=== PATIENT | female | born 1990 | race African-American/Black ===

== ENCOUNTER → 2016-11-07 | Outpatient (CLI) | payer OTHER ==
[~2016-11-07] MED LIST: AZIT500T2 PO; CEPH-460 PO; FERR325T PO; PREN29TA PO; ZOFR4TAB PO
== END ==
LOC: HPND 07:52
PROVIDERS: ATTEND Family Medicine
DX: O26.841 Uterine size-date discrepancy, first trimester (principal)
CPT/HCPCS: 76805

== ENCOUNTER → 2016-12-05 | Outpatient (CLI) | payer OTHER | LOC: HPND 07:59 | PROVIDERS: ATTEND Family Medicine | DX: O99.210 Obesity complicating pregnancy, unspecified trimester (principal); E66.09 Other obesity due to excess calories; Z68.42 Body mass index [BMI] 45.0-49.9, adult | CPT/HCPCS: 76816; 76817 ==

== ENCOUNTER → 2017-01-16 | Outpatient (CLI) | payer OTHER ==
[~2017-01-16] MED LIST changes: -AZIT500T2 PO
== END ==
LOC: HPND 07:58
PROVIDERS: ATTEND Family Medicine
DX: O99.212 Obesity complicating pregnancy, second trimester (principal); Z3A.25 25 weeks gestation of pregnancy
CPT/HCPCS: 76816

== ENCOUNTER → 2017-02-27 | Outpatient (CLI) | payer OTHER | LOC: HPND 09:21 | PROVIDERS: ATTEND Family Medicine | DX: O99.213 Obesity complicating pregnancy, third trimester (principal); Z3A.31 31 weeks gestation of pregnancy | CPT/HCPCS: 76816 ==

== ENCOUNTER 2017-03-14 15:14 | Emergency (ER) | payer OTHER ==
[2017-03-14] VITALS (9 sets, daily range): BP systolic 123–142; BP diastolic 66–87; PULSE 86–99; RESP 18
[~2017-03-14 15:14] MED LIST changes: -CEPH-460 PO; -ZOFR4TAB PO
[2017-03-14] MEDS ORDERED: ACETAMINOPHEN 325 MG TAB PO PRN (16:00)
[2017-03-14 16:42] LABS: HEMATOCRIT 35.2 % (35.0-46.0); MEAN CELL VOLUME 78.7 FL (80.0-100.0); MEAN CORPUSCULAR HEMOGLOBIN 24.6 PG (27.0-34.0); MEAN CORPUSCULAR HGB CONC 31.3 % (32.0-36.0); PLATELET COUNT 258 TH/MM3 (150-450); RED BLOOD COUNT 4.48 MIL/MM3 (4.00-5.30); RED CELL DISTRIBUTION WIDTH 17.6 % (11.6-17.2); REVIEW FLAG FINAL; WHITE BLOOD COUNT 12.3 TH/MM3 (4.0-11.0)
[2017-03-14 16:51] LABS: AMPHETAMINE, URINE NEG (NEG); BARBITURATES, URINE NEG (NEG); COCAINE, URINE NEG (NEG)
[2017-03-14 16:53] LABS: BLOOD, URINE NEG (NEG); GLUCOSE,URINE NEG (NEG); KETONE, URINE NEG (NEG); MUCUS URINE FEW /lpf (OCC); NITRITE,URINE NEG (NEG); PH, URINE 6.5 (5.0-8.5); SQUAMOUS EPITHELIAL CELL URINE 3 /hpf (0-5); URINE COLOR YELLOW (YELLW/STRAW)
[2017-03-14 16:54] LABS: COMMENT (UR) CULT NOT INDICATED; CULTURE IF INDICATED CULT NOT INDICATED
[2017-03-14 17:04] LABS: ALT (GPT) 37 U/L (10-53); ANION GAP 8 MEQ/L (5-15); AST (GOT) 19 U/L (15-37); BLOOD UREA NITROGEN 9 MG/DL (7-18); CHLORIDE 106 MEQ/L (98-107); GLOMERULAR FILTRATION RATE 133 ML/MIN (>89); POTASSIUM 3.9 MEQ/L (3.5-5.1); SODIUM (NA) 139 MEQ/L (136-145)
[2017-03-14 17:09] LABS: ALKALINE PHOSPHATASE 109 U/L (45-117); TOTAL BILIRUBIN ADULT 0.3 MG/DL (0.2-1.0); URIC ACID 3.5 MG/DL (2.6-6.0)
--- NOTE | 2017-03-14 17:27 | HHI.DS ---
Admission Date Pt was seen with c/o headaches, and blurred vision today 03-14-2017. Pt is 26 yo at 33 weeks Pt has had BPs wnl after initial elevation. Systolics 120-130s, and diastolics 70-80s. Headache resolved after Tylenol. No pedal edema, normal patella DTRs. PIH labs wnl, urine trace protein CGC/Ch PCR from urine pending Discharge Date: Mar 14, 2017 Admitting Diagnosis Hypertension in . Diagnosis: Pt Condition on Discharge: Good Discharge Disposition: Discharge Home Discharge Instructions Diet Instructions: As Tolerated, No Restrictions Activities You Can Perform: Regular-No Restrictions Andre Dunaway MD Mar 14, 2017 17:27
--- NOTE | 2017-03-14 17:40 | PD ---
HPI Chief Complaint Headache, Blurry Vision, ABD pain Date Seen: Mar 14, 2017 Travel History International Travel<30 Days: No Contact w/Intl Traveler<30Days: No Known Affected Area: No History of Present Illness HPI Ms. Gupta is 26 y/o presenting at 33/3 weeks with headaches, ABD pain, and blurred vision. She was seen at the [facility] yesterday, 03/13/17, and found to have blood pressure of 142/87 and generalized fatigue. Overnight she started experiencing 8/10 ABD pain that was intermitting in her lower groin. She was able to sleep last night, but this morning endorsed 5/10 abdominal pain, blurred vision, and headaches. She endorses good movement, no loss of fluid, no discharge, and no bleeding. She otherwise has no complaints. 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 - Father of the fetus is healthy Alcohol Use: No Tobacco Use: No Substance Abuse: No Allergies-Medications (Allergen,Severity, Reaction): Coded Allergies: No Known Allergies (Unverified , 03/14/17) Home Meds Active Scripts Vit-Iron Carbonyl ( Plus Iron 29-1 mg)1 Tab Tab1 Tab PO DAILY #90 TAB Ref 3 Prov:Kasandra Thomas MD R2 03/13/17 Ferrous Sulfate 325 Mg [id number] Mg PO DAILY #60 TAB Ref 3 Prov:Sudheer Harris MD R1 12/01/16 Discontinued Scripts Cephalexin (Keflex)500 Mg [id number] Mg PO Q8H #21 CAP Ref 0 Prov:Sherron Vo MD 02/10/17 Vit-Iron Carbonyl ( Plus Iron 29-1 mg)1 Tab Tab1 Tab PO DAILY #60 TAB Ref 3 Prov:Sherron Vo MD 02/10/17 Ondansetron (Zofran)4 Mg Tab4 Mg PO Q6HR PRN (NAUSEA OR VOMITING) #6 TAB Ref 0 Prov:Sudheer Harris MD R1 01/26/17 Review of Systems General / Constitutional: No: Fever, Chills Eyes: Blurred Vision, No: Diploplia HENT: Headaches Cardiovascular: No: Chest Pain or Discomfort, Palpitations Respiratory: No: Cough, Short of Breath, Wheezing Gastrointestinal: Abdominal Pain, No: Nausea, Vomiting, Diarrhea Genitourinary: No: Dysuria, Discharge, Vaginal Bleeding Musculoskeletal: No: Weakness Skin: No Rash Neurologic: No: Weakness Psychiatric: No: Substance Abuse Endocrine: No: Polydipsia Hematologic/Lymphatic: No Lymph Node Enlargement Physical Exam Vital Signs Date Time Temp Pulse Resp B/P Pulse Ox O2 Delivery O2 Flow Rate FiO2 03/14/17 17:04 96 135/66 03/14/17 16:46 88 134/84 03/14/17 16:31 86 124/83 03/14/17 16:16 93 128/81 03/14/17 16:10 94 123/73 03/14/17 15:46 96 123/82 03/14/17 15:45 18 03/14/17 15:42 96 139/73 03/14/17 15:31 99 142/87 Narrative GENERAL: Well-nourished, well-developed patient. SKIN: Warm and dry. HEAD: Normocephalic and atraumatic. EYES: No scleral icterus. No injection or drainage. ENT: No nasal drainage noted. Mucous membranes pink. Airway patent. NECK: Supple, trachea midline. No JVD. CARDIOVASCULAR: Regular rate and rhythm without murmurs, gallops, or rubs. RESPIRATORY: Breath sounds equal bilaterally. No accessory muscle use. ABDOMEN/GI: Abdomen soft, non-tender, bowel sounds present, no rebound, no guarding Gravid to 33 weeks size FHT's: Category: 1 Baseline: 125 Reactive: + Variability: Moderate Decels: None EXTREMITIES: No cyanosis or edema. BACK: Nontender without obvious deformity. No CVA tenderness. NEUROLOGICAL: Awake and alert. Motor and sensory grossly within normal limits. Five out of 5 muscle strength in all muscle groups. Reflexes WNL. Normal speech. Data Data Vital Signs Reviewed: Yes Orders Cbc No Diff, Includes Plts (03/14/17 15:49) Comprehensive Metabolic Panel (03/14/17 15:49) Uric Acid (03/14/17 15:49) Urinalysis - C+S If Indicated (03/14/17 15:49) Vital Signs (Adult) .ON ADMISSION (03/14/17 15:49) ^ Labor Status (03/14/17 15:49) ^ Non Stress Test (03/14/17 15:49) ^ Hydration (03/14/17 15:49) Ob/Psych Drug Screen, Urine (03/14/17 15:49) Acetaminophen (Tylenol) (03/14/17 16:00) Gc And Chlamydia Pcr (03/14/17 16:17) Ur Bath Salts (03/14/17 15:25) Ur Heroin (03/14/17 15:25) Ur K2 Spice (03/14/17 15:25) Ur Ecstasy (03/14/17 15:25) Phencyclidine Urine (Pcp) (03/14/17 15:25) Labs Laboratory Tests Test 03/14/17 03/14/17 15:25 16:00 Urine Color YELLOW Urine Turbidity CLEAR Urine pH 6.5 Urine Specific [place] 1.021 Urine Protein TRACE Urine Glucose (UA) NEG Urine Ketones NEG Urine Occult Blood NEG Urine Nitrite NEG Urine Bilirubin NEG Urine Urobilinogen LESS THAN 2.0 Urine Leukocyte Esterase SMALL Urine RBC 1 Urine WBC 2 Urine Squamous Epithelial 3 Cells Urine Mucus FEW Microscopic Urinalysis Comment CULT NOT INDICATED Urine Opiates Screen NEG Urine Barbiturates Screen NEG Urine Amphetamines Screen NEG Urine Benzodiazepines Screen NEG Urine Cocaine Screen NEG Urine Cannabinoids Screen NEG White Blood Count 12.3 Red Blood Count 4.48 Hemoglobin 11.0 Hematocrit 35.2 Mean Corpuscular Volume 78.7 Mean Corpuscular Hemoglobin 24.6 Mean Corpuscular Hemoglobin 31.3 Concent Red Cell Distribution Width 17.6 Platelet Count 258 Mean Platelet Volume 8.2 Sodium Level 139 Potassium Level 3.9 Chloride Level 106 Carbon Dioxide Level 25.0 Anion Gap 8 Blood Urea Nitrogen 9 Creatinine 0.66 Estimat Glomerular Filtration 133 Rate Random Glucose 92 Uric Acid 3.5 Calcium Level 9.0 Total Bilirubin 0.3 Aspartate Amino Transf 19 (AST/SGOT) Alanine Aminotransferase 37 (ALT/SGPT) Alkaline Phosphatase 109 Total Protein 7.4 Albumin 2.6 [facility] Medical Record Reviewed: Yes Plan Ms. Gupta is 26 y/o presenting at 33/3 weeks with headaches, ABD pain, and blurred vision likely secondary to hypertension in . 1. IUP at 33 weeks Continue routine OB care Encourage oral hydration 2. Hypertension in Exam reassuring Initial blood pressure 142/87, thereafter systolics between 120 to 130s and diastolics between 70 to 80s. -induced hypertension labs ordered, within normal limits Urine with trace protein Headache resolved with Tylenol administration 3. History of chlamydial infection Previously treated per chart review Test of cure urine chlamydia and gonorrhea PCR: Pending Patient to be discharged home and advised to follow-up with PCP within one week. DW: Dr. Dunaway, Dr. Nam Diagnosis Diagnosis: Primary Impression: 33 weeks gestation of Additional Impression: Hypertension affecting Disposition: 01 DISCHARGE HOME Condition: Stable Patient Instructions: General Instructions, Preeclampsia (ED) Departure Forms: Tests/Procedures Fausto Winston MD R1 Mar 14, 2017 17:40
[2017-03-14 18:38] LABS: CHLAMYDIA PCR NOT DETECTED (NOT DETECT); NEISSERIA PCR NOT DETECTED (NOT DETECT)
[2017-03-18 17:23] LABS: OBMETHADONE UR NEG (NEG); PHENCYCLIDINE URINE NEG (NEG)
[2017-03-18 17:24] LABS: BATH SALTS (MDPV) UR NEG (NEG); ECSTASY (MDMA) UR NEG (NEG); GABAPENTIN UR NEG (NEG); HEROIN (6-ACETYLMORPHINE) UR NEG (NEG); HYDROMORPHONE U NEG (NEG); K2 SPICE UR NEG (NEG); OXYCODONE (PERCODAN) NEG (NEG)
[2017-03-19] MEDS ORDERED: NORC5TAB PO (12:22)
== END 2017-03-14 18:18 | disposition home or self-care (01) ==
LOC: HOBED 15:14
DX: O16.3 Unspecified maternal hypertension, third trimester (principal); Z3A.33 33 weeks gestation of pregnancy
CPT/HCPCS: 80053; 80307; 81001; 84550; 85027; 87491; 87591; 99283; G0481

== ENCOUNTER 2017-03-23 11:11 | Emergency (ER) | payer OTHER ==
[~2017-03-23] VITALS: Ht 170.2 cm; Wt 140.0 kg
[~2017-03-23 11:11] MED LIST changes: +NORC5TAB PO
[2017-03-23 11:18] VITALS: BP 127/82; PULSE 103; RESP 20; TEMP 98.3; O2SAT 98
[2017-03-23] MEDS ORDERED: FERR324T4 PO (11:22)
[2017-03-23] MEDS ORDERED: ACETAMINOPHEN 325 MG TAB PO ONE (11:30)
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
[2017-03-23 12:37] VITALS: RESP 20
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
[2017-03-23 13:41] VITALS: BP 145/89
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
== END 2017-03-23 15:22 | disposition home or self-care (01) ==
LOC: HOBED 11:11 → NEPC 13:52 → HOBED 14:12
DX: O9A.213 Injury, poisoning and certain other consequences of external causes complicating pregnancy, third trimester (principal); S00.83XA Contusion of other part of head, initial encounter; S13.4XXA Sprain of ligaments of cervical spine, initial encounter; Z3A.34 34 weeks gestation of pregnancy; V43.52XA Car driver injured in collision with other type car in traffic accident, initial encounter
CPT/HCPCS: 59025; 70450

== ENCOUNTER 2017-04-06 23:14 | Emergency (ER) | payer OTHER ==
[~2017-04-06] VITALS: Ht 170.2 cm; Wt 143.3 kg
[~2017-04-06 23:14] MED LIST changes: +FERR324T4 PO; -FERR325T PO; -NORC5TAB PO
[2017-04-07] MEDS ORDERED: ACETAMINOPHEN 325 MG TAB PO ONE (00:15)
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
[2017-04-07 00:27] VITALS: BP 135/67; PULSE 80
[2017-04-07 00:29] VITALS: RESP 20
[2017-04-21] MEDS ORDERED: MICO1CRE2 VAGINAL (12:37)
== END 2017-04-07 00:37 | disposition home or self-care (01) ==
LOC: HOBED 23:14
DX: O26.893 Other specified pregnancy related conditions, third trimester (principal); R10.9 Unspecified abdominal pain; Z3A.37 37 weeks gestation of pregnancy
CPT/HCPCS: 59025

== ENCOUNTER 2017-04-15 10:19 | Emergency (ER) | payer OTHER ==
[2017-04-15] VITALS (12 sets, daily range): BP systolic 111–151; BP diastolic 64–93; PULSE 69–80; RESP 18
--- NOTE | 2017-04-15 10:56 | PD ---
HPI Chief Complaint Headache Date Seen: Apr 15, 2017 Time Seen: 10:30 (Tate Morton MD R2) Travel History International Travel<30 Days: No Contact w/Intl Traveler<30Days: No Known Affected Area: No (Tate Morton MD R2) History of Present Illness HPI Patient is a 26-year-old at 38 weeks and 1 day who presents with headache. She reports that her headache started last night with some associated right foot numbness. She reports that the headache starts in the back of her head and goes to the front of her head. She describes as 10 out of 10 in severity. She reports that she woke up this morning with right eye blurriness, which is better now but not perfect. She also complains of some dizziness, like the room is spinning around her, worse with walking, with associated diaphoresis. She denies any contractions, leakage of fluid, vaginal bleeding. She reports movement. She reports some abdominal pressure but no pain. She also reports some feet swelling. Review of systems is otherwise negative. ( Tate Morton MD R2) History Past Medical History Medical History: Denies Significant Hx (Tate Morton MD R2) Obstetric History Obstetric History Patient reports that this is her first and has been uncomplicated except that recently she has had some elevated blood pressure with proteinuria as well as elevated blood glucose. She does not yet need medications for any of these problems. (Tate Morton MD R2) Past Surgical History Surgical History: No Previous Surgery (Tate Morton MD R2) Family History Narrative Family History Patient is accompanied by her sister who reports that she had preeclampsia in both of her pregnancies. (Tate Morton MD R2) Social History Narrative Social History Patient reports living alone. Alcohol Use: No Tobacco Use: No Substance Abuse: No (Tate Morton MD R2) Allergies-Medications (Allergen,Severity, Reaction): Coded Allergies: Keflex (Verified Adverse Reaction, Intermediate, Rash, 04/14/17) Home Meds Active Scripts Cyclobenzaprine (Flexeril)5 Mg Tab5 Mg PO TID #3 TAB Ref 0 Prov:Tate Morton MD R2 04/15/17 Vit-Iron Carbonyl ( Plus Iron 29-1 mg)1 Tab Tab1 Tab PO DAILY #90 TAB Ref 3 Prov:Kasandra Thomas MD R3 03/13/17 Reported Medications Ferrous Sulfate DR 324 Mg [id number] Mg PO DAILY Ref 0 03/23/17 Discontinued Scripts Cyclobenzaprine (Flexeril)5 Mg Tab5 Mg PO TID #21 TAB Ref 0 Prov:Tate Morton MD R2 04/15/17 Review of Systems General / Constitutional: No: Fever, Weight Gain, Chills, Other Eyes: Blurred Vision (right eye, improving, but not at baseline) HENT: Headaches, Vertigo Cardiovascular: No: Irregular Rhythm, Chest Pain or Discomfort, Palpitations, Tachycardia, Syncope, Varicosities, Edema, Cyanosis Respiratory: No: Cough, Short of Breath, Other Gastrointestinal: No: Nausea, Vomiting, Diarrhea, Abdominal Pain Genitourinary: No: Dysuria, Decreased Urinary Output, Oliguria Musculoskeletal: Edema (of feet), Pain (in head), No: Limited ROM, Weakness, Cramping Neurologic: Dizziness, Headache, No: Syncope (Tate Morton MD R2) Physical Exam Blood pressure 137/80, 131/79, heart rate 80-94, respiratory rate 20, temperature 97.8, pain 10 out of 10 Narrative GENERAL: Well-nourished, well-developed obese female patient. SKIN: Warm and dry. HEAD: Normocephalic and atraumatic. EYES: No scleral icterus. No injection or drainage. ENT: No nasal drainage noted. Mucous membranes pink. Airway patent. NECK: Supple, trachea midline. No JVD. CARDIOVASCULAR: Regular rate and rhythm without murmurs, gallops, or rubs. RESPIRATORY: Breath sounds equal bilaterally. No accessory muscle use. ABDOMEN/GI: Abdomen soft, non-tender, bowel sounds present, no rebound, no guarding Gravid to 38 weeks size GENITOURINARY: Uterine Contractions: none FHT's: Category: Cat I Baseline: 130 Reactive: reactive Variability: moderate Decels: none EXTREMITIES: No cyanosis or edema. BACK: Nontender without obvious deformity. No CVA tenderness. NEUROLOGICAL: Awake and alert. Motor and sensory grossly within normal limits. Five out of 5 muscle strength in all muscle groups. Normal speech. (Tate Morton MD R2) Data Data Vital Signs Reviewed: Yes (Tate Morton MD R2) MDM Plan Patient is a 26-year-old at 38 weeks and 1 day who presents with headache. Patient has recent history of elevated blood pressures. Blood pressures are elevated but not concerning. 1. headache Monitor vitals, tocometry, heart tones, all reassuring Encourage by mouth hydration Fioricet by mouth 1 2. Elevated blood pressure in , likely chronic hypertension CBC, CMP, uric acid, LDH Outpatient 24-hour urine protein Addendum: Patient blood pressure seems to have improved to normal with left lateral recumbent positioning and larger blood pressure cuff. Patient still complains of intractable headache. Demerol 25 mg IM 1 and Phenergan 25 mg IM 1 Plan to discharge home Another addendum: Pt still without relief of headache. Full neurological exam normal. However, patient does have tenderness to palpation of her posterior neck and exacerbation of her headache with turning her head against resistance. Explained that this is reassuring for musculoskeletal/tension headaches. Discharge with prescription for Flexeril x1d d/w Dr. Saavedra (Tate Morton MD R2) Diagnosis Diagnosis: Primary Impression: Headache Additional Impressions: Normal in third trimester Hypertension affecting Disposition: 01 DISCHARGE HOME Condition: Good Scripts Cyclobenzaprine (Flexeril)5 Mg Tab5 Mg PO TID #3 TAB Ref 0 Prov:Tate Morton MD R2 04/15/17 Attestation Serial BPs 114/71, 111/64. Will administer pain medication and po fluids. Will d/c home if labs are negative and HENNESSY improves. Outpatient 24hr urine. Close f/u d/w patient. All questions answered. (Ivette Saavedra MD) Tate Morton MD R2 Apr 15, 2017 10:56 Ivette Saavedra MD Apr 15, 2017 13:17
[2017-04-15] MEDS ORDERED: ACETAMIN 325 MG/BUTALBITAL 50 MG/CAFFEINE 40 MG TAB PO ONE (11:00)
[2017-04-15 12:33] LABS: HEMATOCRIT 36.3 % (35.0-46.0); MEAN CELL VOLUME 78.7 FL (80.0-100.0); MEAN CORPUSCULAR HGB CONC 31.8 % (32.0-36.0); PLATELET COUNT 226 TH/MM3 (150-450); RED BLOOD COUNT 4.61 MIL/MM3 (4.00-5.30); RED CELL DISTRIBUTION WIDTH 16.3 % (11.6-17.2); REVIEW FLAG FINAL
[2017-04-15] MEDS ORDERED: MEPERIDINE HCL 25 MG/ML VIAL IM ONE (13:00)
[2017-04-15] MEDS ORDERED: PROMETHAZINE INJ 25 MG/ML VIAL IM ONE (13:00)
[2017-04-15 13:06] LABS: ALKALINE PHOSPHATASE 142 U/L (45-117); TOTAL BILIRUBIN ADULT 0.3 MG/DL (0.2-1.0)
[2017-04-15 13:10] LABS: ALT (GPT) 21 U/L (10-53); ANION GAP 8 MEQ/L (5-15); AST (GOT) 17 U/L (15-37); BICARBONATE 22.9 MEQ/L (21.0-32.0); BLOOD UREA NITROGEN 5 MG/DL (7-18); CHLORIDE 107 MEQ/L (98-107); GLOMERULAR FILTRATION RATE 136 ML/MIN (>89); LDH SERUM 225 U/L (84-246); SODIUM (NA) 138 MEQ/L (136-145); URIC ACID 3.8 MG/DL (2.6-6.0)
[2017-04-15] MEDS ORDERED: CYCL5TAB PO ×2 (14:22→14:23)
[2017-04-21] MEDS ORDERED: MICO1CRE2 VAGINAL (12:37)
[2017-06-19] MEDS ORDERED: SENN1TAB PO (13:53)
[2017-06-19] MEDS ORDERED: MIRA3350 PO (13:53)
== END 2017-04-15 14:59 | disposition home or self-care (01) ==
LOC: HOBED 10:19
DX: O26.893 Other specified pregnancy related conditions, third trimester (principal); R51 Headache; O16.3 Unspecified maternal hypertension, third trimester; Z3A.38 38 weeks gestation of pregnancy
CPT/HCPCS: 36415; 59025; 80053; 83615; 84550; 85027; 96372; 99284; J2175; J2550

== ENCOUNTER 2017-04-21 21:29 | Emergency (ER) | payer OTHER ==
[~2017-04-21 21:29] MED LIST changes: +CYCL5TAB PO; +MICO1CRE2 VAGINAL
[2017-04-21 21:59] VITALS: BP 131/73; PULSE 87
--- NOTE | 2017-04-21 22:18 | PD ---
HPI Chief Complaint contractions Date Seen: Apr 21, 2017 Time Seen: 22:00 (Osvaldo De La Torre MD R1) Travel History International Travel<30 Days: No Contact w/Intl Traveler<30Days: No Known Affected Area: No (Osvaldo De La Torre MD R1) History of Present Illness HPI Ms. Huang is a 26 yo F presenting with contractions. Pt states that for the past 4 days she has noticed contractions which worsened today. Describes increasing intensity and around 6 PM she had contractions every 5 - 10 minutes. Describes cramp like pain around naval, then lower abdomen then lower back. Denies vaginal bleeding or gush of fluid. States decreased movement, reporting one movement in the last hour. Denies fever/chills or dysuria Para: 0 : 1 (Osvaldo De La Torre MD R1) History Past Medical History Narrative Medical History Past Medical History Medical History: Denies Significant Hx Obstetric History Obstetric History Patient reports that this is her first and has been uncomplicated except that recently she has had some elevated blood pressure with proteinuria as well as elevated blood glucose. She does not yet need medications for any of these problems. (Tate Morton MD R2) Past Surgical History Surgical History: No Previous Surgery Family History Narrative Family History Patient is accompanied by her sister who reports that she had preeclampsia in both of her pregnancies. Social History Narrative Social History Patient reports living alone. Alcohol Use: No Tobacco Use: No Substance Abuse: No (Osvaldo De La Torre MD R1) Allergies-Medications (Allergen,Severity, Reaction): Coded Allergies: cephalexin (Unverified Adverse Reaction, Intermediate, Rash, 04/21/17) Home Meds Active Scripts Miconazole 3 Vaginal Cream (Monistat 3 Vaginal Cream)4 % Cream1 Appl VAGINAL HS #1 BOX Ref 0 Prov:Sudheer Harris MD R2 04/21/17 Vit-Iron Carbonyl ( Plus Iron 29-1 mg)1 Tab Tab1 Tab PO DAILY #90 TAB Ref 3 Prov:Kasandra Thomas MD, R3 03/13/17 Reported Medications Ferrous Sulfate DR 324 Mg [id number] Mg PO DAILY Ref 0 03/23/17 Discontinued Scripts Cyclobenzaprine (Flexeril)5 Mg Tab5 Mg PO TID #3 TAB Ref 0 Prov:Tate Morton MD R2 04/15/17 Review of Systems General / Constitutional: No: Fever, Chills Cardiovascular: No: Edema Genitourinary: No: Dysuria, Vaginal Bleeding (Osvaldo De La Torre MD R1) Physical Exam Narrative GENERAL: Well-nourished, well-developed patient. SKIN: Warm and dry. HEAD: Normocephalic and atraumatic. EYES: No scleral icterus. No injection or drainage. NECK: Supple, trachea midline. No JVD. CARDIOVASCULAR: Regular rate and rhythm without murmurs, gallops, or rubs. RESPIRATORY: Breath sounds equal bilaterally. No accessory muscle use. ABDOMEN/GI: Abdomen soft, no rebound, no guarding. mild tenderness in the epigastric region and LLQ Gravid to 39 weeks size GENITOURINARY: Dilatation: closed Effacement: full Station: -3 FHT's: Category: 1 Baseline: 140's Reactive: reassuring Variability: variable Decels: none EXTREMITIES: No cyanosis. +1 edema BACK: Nontender without obvious deformity. No CVA tenderness. NEUROLOGICAL: Awake and alert. Motor and sensory grossly within normal limits. Five out of 5 muscle strength in all muscle groups. Normal speech. (Osvaldo De La Torre MD R1) MDM Plan 26 yo at 39/0 presenting with contractions. Category 1 tracing, cervix 0 cm dilated and very posterior. No contractions on tracing OK to discharge home. Patient counseled to come back if she has gush of fluid, vaginal bleeding, increase in severity and shortening between contractions. (Osvaldo De La Torre MD R1) Diagnosis Diagnosis: Primary Impression: False labor Additional Impression: 39 weeks gestation of Disposition: 01 DISCHARGE HOME Condition: Good Collaborating MD Comments Agree with management and discharge. (Sumaya Monteiro MD) Osvaldo De La Torre MD R1 Apr 21, 2017 22:18 Sumaya Monteiro MD Apr 23, 2017 11:57
[2017-06-19] MEDS ORDERED: MIRA3350 PO (13:53)
[2017-06-19] MEDS ORDERED: SENN1TAB PO (13:53)
== END 2017-04-22 00:05 | disposition home or self-care (01) ==
LOC: HOBED 21:29
DX: O47.1 False labor at or after 37 completed weeks of gestation (principal); Z3A.39 39 weeks gestation of pregnancy
CPT/HCPCS: 59025

== ENCOUNTER 2017-04-26 21:35 | Emergency (ER) | payer OTHER ==
[~2017-04-26] VITALS: Ht 170.2 cm; Wt 144.2 kg
[~2017-04-26 21:35] MED LIST changes: -CYCL5TAB PO
[2017-04-26 21:49] VITALS: BP 135/79; PULSE 79
[2017-04-26 21:54] VITALS: RESP 18
--- NOTE | 2017-04-26 22:07 | PD ---
HPI Travel History International Travel<30 Days: No Contact w/Intl Traveler<30Days: No Known Affected Area: No History of Present Illness HPI This patient is a 26-year-old 1 para 0 EDC is April 28, 2017 presently 39 weeks and 5 days scheduled for an induction on April 28 she presents with the chief complaint of contractions. States they began about 4 hours ago occurring every 2-5 minutes no rupture of membranes no vaginal bleeding states that she has tightening of her abdomen that radiates to the low back baby is active care with family practice course is significant for an abnormal one- hour Glucola but she never had three-hour Protein in her urine She presents for labor check History Past Medical History Narrative Medical Allergy to Keflex she has swelling and a rash Denies any major medical problems Obesity Obstetric History Obstetric History First Past Surgical History Narrative Surgical No previous surgery Family History Narrative Family History Hypertension Social History Alcohol Use: No Tobacco Use: No Substance Abuse: No Allergies-Medications (Allergen,Severity, Reaction): Coded Allergies: cephalexin (Unverified Adverse Reaction, Intermediate, Rash, 04/21/17) Home Meds Active Scripts Miconazole 3 Vaginal Cream (Monistat 3 Vaginal Cream) 4 % Cream, 1 APPL VAGINAL HS for Infection, #1 BOX 0 Refills Prov:Sudheer Harris MD R2 04/21/17 Vit-Iron Carbonyl ( Plus Iron 29-1 mg) 1 Tab Tab, 1 TAB PO DAILY for Nutritional Supplement, #90 TAB 3 Refills Prov:Kasandra Thomas MD, R3 03/13/17 Reported Medications Ferrous Sulfate DR (Ferrous Sulfate DR) 324 Mg Tabdr, 324 MG PO DAILY for Nutritional Supplement, TAB 0 Refills 03/23/17 Discontinued Scripts Cyclobenzaprine (Flexeril) 5 Mg Tab, 5 MG PO TID for Muscle Spasm, #3 TAB 0 Refills Prov:Tate Morton MD R2 04/15/17 Review of Systems General / Constitutional: No: Fever, Weight Gain, Weight Loss, Chills, Other Eyes: No: Diploplia, Blurred Vision, Visual changes, Pain, Photophobia, Other HENT: No: Headaches, Vertigo, Dental Difficulties, Lightheadedness, Other Cardiovascular: No: Irregular Rhythm, Chest Pain or Discomfort, Palpitations, Tachycardia, Syncope, Varicosities, Edema, Cyanosis, Other Respiratory: No: Cough, Short of Breath, Wheezing, Other Gastrointestinal: Abdominal Pain (uterine contractions as per history of present illness) Genitourinary: No: Urgency, Frequency, Dysuria, Nocturia, Hematuria, Decreased Urinary Output, Oliguria, Hesitancy, Dribbling, Incontinence, Pelvic Pain, Dyspareunia, Discharge, Menorrhagia, Vaginal Bleeding, Other Musculoskeletal: Pain (low back pain), No: Limited ROM, Weakness, Cramping, Edema, Other Neurologic: No: Weakness, Dizziness, Syncope, Focal Abnormalities, Coordination Problem, Headache, Slurred Speech, Seizures, Other Physical Exam Narrative GENERAL: Well-nourished, well-developed patient. Alert oriented 3 and cooperative in no acute distress SKIN: Warm and dry. HEAD: Normocephalic and atraumatic. EYES: No scleral icterus. No injection or drainage. ENT: No nasal drainage noted. Mucous membranes pink. Airway patent. NECK: Supple, trachea midline. No JVD. CARDIOVASCULAR: Regular rate and rhythm without murmurs, gallops, or rubs. RESPIRATORY: Breath sounds equal bilaterally. No accessory muscle use. ABDOMEN/GI: Gravid term only 1 contraction seen on the monitor Gravid to [-] weeks size term Fundal Height: [-] GENITOURINARY: External Genitalia: intact and normal in appearance BUS glands: [-] Cervix: [-] Posterior Dilatation: [-] Closed Effacement: [-] 0 Station: [-] Ballotable Presentation: [-] Vertex Membranes: [intact Uterine Contractions: [-] Irregular contractions only 1 seen FHT's: Category: [-] 1 Baseline: [-]140 Reactive: [-]+ Variability: [-] Moderate variability Decels: [-] 0 EXTREMITIES: No cyanosis or edema. 2+ reflexes NEUROLOGICAL: Awake and alert. Motor and sensory grossly within normal limits. Five out of 5 muscle strength in all muscle groups. Normal speech. Data Data Vital Signs Reviewed: Yes (blood pressures 135/79 pulse is 79 afebrile 98 6) MDM Medical Record Reviewed: No Interpretation(s) 26-year-old at 39 weeks and 5 days Not in labor [place] Vergara versus early latent phase Narrative Course / MDM contractions spaced cervix is not dilated category one tracing will discharge home patient to follow up in the clinic kick counts Plan External monitoring By mouth fluid hydration Observation Family practice in to see the patient Will send the patient home to follow-up in the clinic in the a.m. Diagnosis Diagnosis: Primary Impression: 39 weeks gestation of Additional Impression: Labor, false ([place]-Vergara) Disposition: 01 DISCHARGE HOME Condition: Stable Suha Padilla MD Apr 26, 2017 22:07
[2017-06-19] MEDS ORDERED: SENN1TAB PO (13:53)
[2017-06-19] MEDS ORDERED: MIRA3350 PO (13:53)
== END 2017-04-26 22:46 | disposition home or self-care (01) ==
LOC: HOBED 21:35
DX: O47.1 False labor at or after 37 completed weeks of gestation (principal); Z3A.39 39 weeks gestation of pregnancy
CPT/HCPCS: 59025

== ENCOUNTER 2017-04-29 14:35 | Inpatient (IN) | payer OTHER ==
[~2017-04-29] VITALS: Ht 170.2 cm; Wt 144.0 kg
[~2017-04-29 14:35] MED LIST changes: -MICO1CRE2 VAGINAL
[2017-04-29] MEDS ORDERED: OXYTOCIN 30 UNITS-500ML PREMIX 500 ML IV ONE (16:00)
[2017-04-29] MEDS ORDERED: LIDOCAINE HCL 1% 50 ML VIAL I-DERMAL PRN (16:00)
[2017-04-29] MEDS ORDERED: LIDOCAINE HCL 1% 50 ML VIAL INFIL PRN (16:00)
[2017-04-29] MEDS ORDERED: ONDANSETRON HCL 4 MG/2 ML VIAL IV PRN (16:00)
[2017-04-29] MEDS ORDERED: CITRIC ACID-SODIUM CITRATE LIQ 30 ML UDC PO SCH (16:00)
[2017-04-29] MEDS ORDERED: MINERAL OIL 10 ML VIAL TOPICAL PRN (16:00)
[2017-04-29] MEDS ORDERED: SODIUM CHLORID 0.9% 500 ML INJ 500 ML IV PRN (16:00)
[2017-04-29] MEDS ORDERED: LACTATED RINGER'S 1000 ML INJ 1,000 ML IV PRN (16:00)
[2017-04-29] MEDS: LACTATED RINGER'S 1000 ML INJ 1,000 ML IV SCH ×2 (16:00→23:43)
[2017-04-29 16:30] LABS: AUTOMATED NEUTROPHIL # 9.8 TH/MM3 (1.8-7.7); BASOPHIL % 0.2 % (0.0-2.0); EOSINOPHIL % 0.4 % (0.0-4.0); HEMATOCRIT 36.3 % (35.0-46.0); HEMO FLAGS DIFF FINAL; LYMPHOCYTE # 1.7 TH/MM3 (1.0-4.8); MEAN CELL VOLUME 79.1 FL (80.0-100.0); MEAN CORPUSCULAR HEMOGLOBIN 24.9 PG (27.0-34.0); MEAN CORPUSCULAR HGB CONC 31.4 % (32.0-36.0); MONO % 4.9 % (0.0-8.0); NEUT % 80.5 % (16.0-70.0); PLATELET COUNT 231 TH/MM3 (150-450); RED BLOOD COUNT 4.59 MIL/MM3 (4.00-5.30); RED CELL DISTRIBUTION WIDTH 16.6 % (11.6-17.2); WHITE BLOOD COUNT 12.1 TH/MM3 (4.0-11.0)
[2017-04-29 16:49] LABS: BACTERIA, URINE MOD /hpf; BLOOD, URINE NEG (NEG); COMMENT (UR) CULTURE INDICATED; CULTURE IF INDICATED CULTURE INDICATED; GLUCOSE,URINE NEG (NEG); KETONE, URINE NEG (NEG); NITRITE,URINE NEG (NEG); PH, URINE 6.5 (5.0-8.5); SQUAMOUS EPITHELIAL CELL URINE 12 /hpf (0-5); URINE COLOR YELLOW (YELLW/STRAW)
--- NOTE | 2017-04-29 17:08 | HHI.HP ---
History & Physical H&P HPI Chief Complaint Oligohydramnios Date Seen: Apr 29, 2017 Time Seen: 16:30 Travel History International Travel<30 Days: No Contact w/Intl Traveler<30Days: No Known Affected Area: No History of Present Illness HPI Miroslava Huang is a very pleasant 26 year old female at 40/1 weeks gestation based on an early 2nd trimester US sent to the OB ED from [facility] ultrasound after being found to have low fluid volume. Her has been complicated by an elevated 24-hour protein at 198 at the end of March and elevated protein/creatinine ratio at 121 as well as an elevated blood glucose with her 1-hour glucose tolerance test at 138. BPs have been within normal limits at her office visits. She reports she is feeling contractions at irregular intervals. Endorses good movement. No LOF or VB. She is GBS positive based on GBS bacteriuria earlier in . Weeks Gestation: 40 Para: 0 : 1 History Past Medical History Medical History: Denies Significant Hx Obstetric History Obstetric History Past Surgical History Surgical History: No Previous Surgery Family History Family History: Negative Social History Alcohol Use: No Tobacco Use: No Substance Abuse: No Allergies-Medications (Allergen,Severity, Reaction): Coded Allergies: cephalexin (Unverified Adverse Reaction, Intermediate, Rash, 04/29/17) Home Meds Active Scripts Vit-Iron Carbonyl ( Plus Iron 29-1 mg) 1 Tab Tab, 1 TAB PO DAILY for Nutritional Supplement, #90 TAB 3 Refills Prov:Kasandra Thomas MD, R3 03/13/17 Reported Medications Ferrous Sulfate DR (Ferrous Sulfate DR) 324 Mg Tabdr, 324 MG PO DAILY for Nutritional Supplement, TAB 0 Refills 03/23/17 Discontinued Scripts Miconazole 3 Vaginal Cream (Monistat 3 Vaginal Cream) 4 % Cream, 1 APPL VAGINAL HS for Infection, #1 BOX 0 Refills Prov:Sudheer Harris MD R2 04/21/17 Cyclobenzaprine (Flexeril) 5 Mg Tab, 5 MG PO TID for Muscle Spasm, #3 TAB 0 Refills Prov:Tate Morton MD R2 04/15/17 Review of Systems Except as stated in HPI: all other systems reviewed are Neg Physical Exam Narrative GENERAL: Well-nourished, well-developed patient. SKIN: Warm and dry. HEAD: Normocephalic and atraumatic. EYES: No scleral icterus. No injection or drainage. ENT: No nasal drainage noted. Mucous membranes pink. Airway patent. NECK: Supple, trachea midline. No JVD. CARDIOVASCULAR: Regular rate and rhythm without murmurs, gallops, or rubs. RESPIRATORY: Breath sounds equal bilaterally. No accessory muscle use. ABDOMEN/GI: Abdomen soft, non-tender, bowel sounds present, no rebound, no guarding Gravid to 40 weeks size GENITOURINARY: External Genitalia: [-] Cervix: posterior Dilatation: fingertip Effacement: 50% Station: -3 Presentation: vertex Membranes: intact Uterine Contractions: none on tocometer FHT's: Category: I Baseline: 130s Reactive: yes Variability: mod Decels: none EXTREMITIES: No cyanosis or edema. BACK: Nontender without obvious deformity. NEUROLOGICAL: Awake and alert. Motor and sensory grossly within normal limits. Normal speech. Data Data Vital Signs Reviewed: Yes Orders Orders Us Ob Limited (04/29/17 ) Ob (2e) Additional Admit Info (04/29/17 15:02) Admit To Inpatient (04/29/17 ) Code Status (04/29/17 15:54) Vital Signs (Adult) .Per protocol (04/29/17 15:54) Activity Oob Ad Ashley (04/29/17 15:54) Heart (04/29/17 15:54) Amnioinfusion (04/29/17 15:54) Urinary Catheter Management .ONCE (04/29/17 15:54) Lactated Ringer's 1000 Ml Inj (Lr 1000 M (04/29/17 15:54) Lactated Ringer's 1000 Ml Inj (Lr 1000 M (04/29/17 15:54) Sodium Chlorid 0.9% 500 Ml Inj (Ns 500 M (04/29/17 16:00) Sodium Chlor 0.9% 1000 Ml Inj (Ns 1000 M (04/29/17 16:14) Lidocaine 1% Inj (50 Ml) (Xylocaine 1% I (04/29/17 16:00) Citric Acid-Sodium Citrate Liq (Bicitra (04/29/17 16:00) Ondansetron Inj (Zofran Inj) (04/29/17 16:00) Fentanyl Inj (Fentanyl Inj) (04/29/17 16:00) Fentanyl Inj (Fentanyl Inj) (04/29/17 16:00) Complete Blood Count With Diff (04/29/17 15:54) Hold Clot (04/29/17 15:54) Abo/Rh Blood Type (04/29/17 15:54) Urinalysis - C+S If Indicated (04/29/17 15:54) Resp Oxygen Non Rebreathe Mask (04/29/17 ) ^ Epidural / Intrathecal Infus (04/29/17 15:54) Oxytocin 30 Units-500ml Premix (Pitocin (04/29/17 16:00) Lidocaine 1% Inj (50 Ml) (Xylocaine 1% I (04/29/17 16:00) Light Mineral Oil (Muri-Lube Oil) (04/29/17 16:00) Inpatient Certification (04/29/17 ) Specimen To Be Collected PRN (04/29/17 15:54) Diet Regular Basic (04/29/17 Lunch) Group B Strep: Positive Labs Laboratory Tests Test 04/29/17 15:25 White Blood Count 12.1 Red Blood Count 4.59 Hemoglobin 11.4 Hematocrit 36.3 Mean Corpuscular Volume 79.1 Mean Corpuscular Hemoglobin 24.9 Mean Corpuscular Hemoglobin Concent 31.4 Red Cell Distribution Width 16.6 Platelet Count 231 Mean Platelet Volume 9.2 Neutrophils (%) (Auto) 80.5 Lymphocytes (%) (Auto) 14.0 Monocytes (%) (Auto) 4.9 Eosinophils (%) (Auto) 0.4 Basophils (%) (Auto) 0.2 Neutrophils # (Auto) 9.8 Lymphocytes # (Auto) 1.7 Monocytes # (Auto) 0.6 Eosinophils # (Auto) 0.0 Basophils # (Auto) 0.0 CBC Comment DIFF FINAL Differential Comment MDM MDM Medical Record Reviewed: Yes Interpretation(s) Very pleasant 26 year old female at 40/1 weeks gestation based on an early 2nd trimester US being admitted to L&D for induction of labor after being found to have low fluid volume at [facility] ultrasound earlier today. 1. IUP - Cervix: fingertip/50%/-3, vertex presentation - Category I tracing - No contractions on tocometer - Start Cytotec 25 ug q4h for cervical ripening - Begin pitocin per protocol once cervix dilates - Initiate penicillin for GBS prophylaxis once labor begins - Patient desiring epidural when indicated - Anticipate amniotomy once cervix is more dilated - BP 145/88, continue to monitor Sudheer Harris MD R2 Apr 29, 2017 17:08
[2017-04-29] MEDS: MISOPROSTOL 25 MCG SUPP VAGINAL SCH ×2 (18:24→22:29)
[2017-04-29 19:37] VITALS: BP 152/91; PULSE 84
[2017-04-29 19:43] VITALS: BP 145/82; PULSE 78
[2017-04-29 19:44] VITALS: RESP 16; TEMP 98
[2017-04-29] MEDS ORDERED: hydrOXYzine PAMOATE 25 MG CAP PO PRN (21:00)
[2017-04-29] MEDS ORDERED: PENICILLIN G POTASSIUM INJ 5,000,000 UNITS in SODIUM CHLORIDE 0.9% INJ 100 ML IV ONE (21:30)
[2017-04-29 22:28] VITALS: BP 151/92; PULSE 76
[2017-04-29 22:30] VITALS: RESP 16; TEMP 97.7
--- NOTE | 2017-04-29 22:54 | PD.LABORPN ---
Subjective Subjective Miroslava is resting comfortably in bed. She has no specific complaints or questions at this time. Denies any significant pelvic pressure. Endorses +FM. She is eager to move forward with induction and deliver Mg. Objective Vital Signs Vital Signs Date Time Temp Pulse Resp B/P (MAP) Pulse Ox O2 Delivery O2 Flow Rate FiO2 04/29/17 22:30 97.7 16 04/29/17 22:28 76 151/92 (111) 04/29/17 19:44 98.0 16 04/29/17 19:43 78 145/82 (103) 04/29/17 19:37 84 152/91 (111) Objective Pelvic Exam: Cervix: posterior Dilatation: 1cm Effacement: 80% Station: -3 Presentation: vertex Membranes: intact Uterine Contractions: none on tocometer FHT's: Category: I Baseline: 140s Reactive: yes Variability: mod Decels: none Weeks Gestation: 40 Gest Age Assessed Date: Apr 29, 2017 Gest Age Assessed Time: 22:40 Pt started active labor?: No Medical induction of labor?: Yes Medical induction start date: Apr 29, 2017 Medical induction start time: 18:00 Artificial rupture of membrane: No Assessment/Plan Problem List: (1) 40 weeks gestation of ICD Codes: Z3A.40 - 40 weeks gestation of Assessment and Plan Very pleasant 26 year old female at 40/1 weeks gestation based on an early 2nd trimester US admitted to L&D for induction of labor after being found to have low fluid volume at [facility] ultrasound earlier today. 1. IUP - Cervix: 1cm/80%/-3, vertex presentation - Category I tracing - No contractions on tocometer - Continue Cytotec 25 ug q4h for cervical ripening - Begin pitocin per protocol once cervix dilates - Initiate penicillin for GBS prophylaxis once labor begins - Patient desiring epidural when indicated - Anticipate amniotomy once cervix is more dilated - BPs 140s-150s/80s-90s, continue to monitor Sudheer Harris MD R2 Apr 29, 2017 22:54
[2017-04-29 23:45] VITALS: BP 145/91; PULSE 68
[2017-04-30] VITALS (69 sets, daily range): BP systolic 99–158; BP diastolic 54–118; PULSE 67–102; RESP 16–18; TEMP 97.7–98.7
[2017-04-30] MEDS: MISOPROSTOL 25 MCG SUPP VAGINAL SCH ×4 (02:32→14:00)
--- NOTE | 2017-04-30 07:05 | PD.LABORPN ---
Subjective Subjective Miroslava reports pelvic pressure and feeling pain from contractions about every 5 minutes. She states she has not been able to get comfortable or sleep very long due to the discomfort. She states her pain was relieved a few hours ago when she last had IV fentanyl. Objective Vital Signs Vital Signs Date Time Temp Pulse Resp B/P (MAP) Pulse Ox O2 Delivery O2 Flow Rate FiO2 04/30/17 05:56 16 04/30/17 05:55 78 139/87 (104) 04/30/17 02:39 67 148/77 (100) 04/30/17 02:39 98.7 18 04/29/17 23:45 68 145/91 (109) Objective Pelvic Exam: Cervix: posterior Dilatation: 1-2cm Effacement: 80% Station: -3 Presentation: vertex Membranes: intact Uterine Contractions: irregular FHT's: Category: I Baseline: 130s Reactive: yes Variability: mod Decels: none Weeks Gestation: 40 Gest Age Assessed Date: Apr 29, 2017 Gest Age Assessed Time: 22:40 Pt started active labor?: No Medical induction of labor?: Yes Medical induction start date: Apr 29, 2017 Medical induction start time: 18:00 Artificial rupture of membrane: No Assessment/Plan Problem List: (1) 40 weeks gestation of ICD Codes: Z3A.40 - 40 weeks gestation of Assessment and Plan Very pleasant 26 year old female at 40/2 weeks gestation based on an early 2nd trimester US admitted to L&D for induction of labor after being found to have oligohydramnios at [facility] on 04/29. 1. IUP - Cervix: 1-2cm/80%/-3, vertex presentation - Category I tracing - Irregular contractions on tocometer - Continue Cytotec 25 ug q4h for cervical ripening - Begin Pitocin once cervix dilates - Patient is GBS positive, continue penicillin per protocol - Patient desiring epidural when indicated - Anticipate amniotomy once cervix is more dilated - BPs 140s-150s/80s-90s, continue to monitor Sudheer Harris MD R2 Apr 30, 2017 07:05
[2017-04-30] MEDS ORDERED: fentaNYL CITRATE 250 MCG/5 ML AMP IV PUSH PRN (07:45)
[2017-04-30] MEDS: LACTATED RINGER'S 1000 ML INJ 1,000 ML IV SCH ×2 (09:10→17:55)
[2017-04-30] MEDS: PENICILLIN G POTASSIUM INJ 2,500,000 UNITS in SODIUM CHLORIDE 0.9% INJ 100 ML IV SCH ×3 (09:56→17:55)
[2017-04-30] MEDS ORDERED: OXYTOCIN 30 UNITS-500ML PREMIX 500 ML IV SCH (12:45)
--- NOTE | 2017-04-30 12:53 | PD.LABORPN ---
Subjective Subjective Patient resting in bed comfortably. Contractions are becoming more painful. Objective Vital Signs Vital Signs Date Time Temp Pulse Resp B/P (MAP) Pulse Ox O2 Delivery O2 Flow Rate FiO2 04/30/17 10:42 75 144/86 (105) 04/30/17 08:37 98.6 04/30/17 08:15 18 04/30/17 08:10 79 138/73 (94) 04/30/17 05:56 16 04/30/17 05:55 78 139/87 (104) Objective Pelvic Exam: Cervix: posterior Dilatation: 2 Effacement: 80 Station: -3 Presentation: vertex Membranes: SROM, clear fluid Uterine Contractions: q4-5min FHT's: Category: I Baseline: 135 Reactive: + Variability: moderate Decels: none Weeks Gestation: 40 Gest Age Assessed Date: Apr 29, 2017 Gest Age Assessed Time: 22:40 Pt started active labor?: No Medical induction of labor?: Yes Medical induction start date: Apr 29, 2017 Medical induction start time: 18:00 Artificial rupture of membrane: No Assessment/Plan Problem List: (1) 40 weeks gestation of ICD Codes: Z3A.40 - 40 weeks gestation of Assessment and Plan Very pleasant 26 year old female at 40/2 weeks gestation based on an early 2nd trimester US admitted to L&D for induction of labor after being found to have oligohydramnios at [facility] on 04/29. 1. IUP- Category I tracing, reassuring 2. IOL for oligohydramnios- s/p Cytotec x 4, SROM with clear fluid. Will start Pitocin 2-2-30. 3. GBS positive- penicillin per protocol 4. Patient desiring epidural when indicated 5. BPs 130s-140s/80s-90s, continue to monitor 6. Anticipate vaginal delivery dw Dr. Dunaway and Dr. Harris R2 Sofy Plata MD, R3 Apr 30, 2017 12:53
[2017-04-30] MEDS ORDERED: fentaNYL 2MCG-BUPIV 0.125% INJ 100 ML ONE (13:38)
[2017-04-30] MEDS ORDERED: ePHEDrine/NS 25 MG/5 ML SYR ONE (13:39)
[2017-04-30] MEDS ORDERED: NO SYSTEM NARCOTICS PRN (14:45)
[2017-04-30] MEDS ORDERED: DO NOT ADMINISTER ANTICOAGULANTS PRN (14:45)
[2017-04-30] MEDS ORDERED: fentaNYL 2MCG-BUPIV 0.125% 100 ML EPIDURAL SCH (14:45)
[2017-04-30] MEDS ORDERED: ePHEDrine/NS 25 MG/5 ML SYR IV PRN (14:45)
[2017-04-30] MEDS: SODIUM CHLOR 0.9% 1000 ML INJ 1,000 ML IV PRN ×2 (17:17→21:06)
--- NOTE | 2017-04-30 18:13 | PD.LABORPN ---
Subjective Subjective Comfortable after epidural Objective Vital Signs Vital Signs Date Time Temp Pulse Resp B/P (MAP) Pulse Ox O2 Delivery O2 Flow Rate FiO2 04/30/17 17:46 75 152/86 (108) 04/30/17 17:41 18 04/30/17 17:31 81 151/87 (108) 04/30/17 17:16 78 151/89 (109) 04/30/17 17:10 18 04/30/17 17:01 76 146/86 (106) 04/30/17 16:46 72 150/77 (101) 04/30/17 16:45 18 04/30/17 16:31 71 149/82 (104) 04/30/17 16:16 69 135/87 (103) 04/30/17 16:13 18 04/30/17 16:01 88 111/61 (78) 04/30/17 15:46 70 136/66 (89) 04/30/17 15:45 97.8 04/30/17 15:38 18 04/30/17 15:31 72 130/63 (85) 04/30/17 15:16 71 137/77 (97) 04/30/17 15:14 18 04/30/17 15:01 72 138/74 (95) 04/30/17 14:46 68 135/77 (96) 04/30/17 14:45 18 04/30/17 14:32 70 119/59 (79) 04/30/17 14:16 81 138/86 (103) 04/30/17 14:11 102 136/83 (100) 04/30/17 14:06 77 128/61 (83) 04/30/17 14:01 78 153/78 (103) 04/30/17 14:00 98.0 04/30/17 14:00 18 04/30/17 13:56 85 142/87 (105) 04/30/17 13:51 75 143/80 (101) 04/30/17 13:46 74 152/76 (101) 04/30/17 13:41 74 158/118 (131) 04/30/17 10:42 75 144/86 (105) FHR Baseline 130s, good variability, variable decells TOCO q 1 minute, pitocin at 8mu/min SVE 4cm/90%/-3 , clear fluid Objective Pelvic Exam: Cervix: [-] Dilatation: [-4cm Effacement: [90%] Station: [-3] Presentation: [vertex] Membranes: [ruptured] Uterine Contractions: [q 1 minute] FHT's: Category: [2] Baseline: [130s] Reactive: [-] Variability: [moderate] Decels: [variables] Amnioinfusion started Weeks Gestation: 40 Gest Age Assessed Date: Apr 29, 2017 Pt started active labor?: No Medical induction of labor?: Yes Medical induction start date: Apr 29, 2017 Medical induction start time: 18:00 Artificial rupture of membrane: No Assessment/Plan Problem List: (1) 40 weeks gestation of ICD Codes: Z3A.40 - 40 weeks gestation of Assessment and Plan Pt at 4cm. Variable decells noted. Amnioinfusion started and Pitocin stopped. Observe for resolution. Will restart Pitocin per protocol, if pattern improves. Andre Dunaway MD Apr 30, 2017 18:13
--- NOTE | 2017-04-30 21:43 | PD.LABORPN ---
Subjective Subjective Patient seen at bedside. Resting comfortably on left lateral side. She reports some pelvic pressure but no significant pain. She states she would like to get some sleep if possible. Objective Vital Signs Vital Signs Date Time Temp Pulse Resp B/P (MAP) Pulse Ox O2 Delivery O2 Flow Rate FiO2 04/30/17 21:32 98.5 04/30/17 21:31 73 18 135/74 (94) 04/30/17 21:16 73 149/87 (107) 04/30/17 21:05 16 04/30/17 21:01 77 142/74 (96) 04/30/17 21:00 142/74 (96) 04/30/17 20:51 79 18 04/30/17 20:31 72 144/65 (91) 04/30/17 20:16 72 147/85 (105) 04/30/17 20:07 73 145/89 (107) 04/30/17 19:46 79 149/79 (102) 04/30/17 19:31 78 154/75 (101) 04/30/17 19:16 77 146/74 (98) 04/30/17 19:15 97.7 04/30/17 19:15 16 04/30/17 19:01 80 136/81 (99) 04/30/17 18:56 18 04/30/17 18:46 78 126/69 (88) 04/30/17 18:32 82 126/54 (78) 04/30/17 18:30 18 04/30/17 18:16 79 145/77 (99) 04/30/17 18:01 91 140/86 (104) 04/30/17 18:00 18 04/30/17 18:00 98.1 04/30/17 17:46 75 152/86 (108) 04/30/17 17:41 18 04/30/17 17:31 81 151/87 (108) 04/30/17 17:16 78 151/89 (109) 04/30/17 17:10 18 04/30/17 17:01 76 146/86 (106) 04/30/17 16:46 72 150/77 (101) 04/30/17 16:45 18 04/30/17 16:31 71 149/82 (104) 04/30/17 16:16 69 135/87 (103) 04/30/17 16:13 18 04/30/17 16:01 88 111/61 (78) 04/30/17 15:46 70 136/66 (89) 04/30/17 15:45 97.8 04/30/17 15:38 18 04/30/17 15:31 72 130/63 (85) 04/30/17 15:16 71 137/77 (97) 04/30/17 15:14 18 04/30/17 15:01 72 138/74 (95) 04/30/17 14:46 68 135/77 (96) 04/30/17 14:45 18 04/30/17 14:32 70 119/59 (79) 04/30/17 14:16 81 138/86 (103) 04/30/17 14:11 102 136/83 (100) 04/30/17 14:06 77 128/61 (83) 04/30/17 14:01 78 153/78 (103) 04/30/17 14:00 98.0 04/30/17 14:00 18 04/30/17 13:56 85 142/87 (105) 04/30/17 13:51 75 143/80 (101) 04/30/17 13:46 74 152/76 (101) Objective Pelvic Exam: Cervix: midposition Dilatation: 5cm Effacement: 90% Station: -2 Presentation: vertex Membranes: ruptured Uterine Contractions: q2m on tocometer FHT's: Category: II Baseline: 130s Reactive: yes Variability: mod Decels: intermittent variable decels Weeks Gestation: 40 Gest Age Assessed Date: Apr 29, 2017 Gest Age Assessed Time: 22:00 Pt started active labor?: No Medical induction of labor?: Yes Medical induction start date: Apr 29, 2017 Medical induction start time: 18:00 Artificial rupture of membrane: No Assessment/Plan Problem List: (1) 40 weeks gestation of ICD Codes: Z3A.40 - 40 weeks gestation of Assessment and Plan Very pleasant 26 year old female at 40/2 weeks gestation based on an early 2nd trimester US admitted to L&D for induction of labor after being found to have oligohydramnios at [facility] on 04/29. 1. IUP - Category II tracing, continue to monitor tracing - Cervix: 5/90%/-2, vertex presentation - Contractions q2m on tocometer 2. IOL for oligohydramnios - s/p Cytotec x 4 doses - SROM with clear fluid - Variable decells noted ~18:00, amnioinfusion started and Pitocin had been stopped - Pitocin now resumed 2-2-30 following improved pattern 3. GBS positive- penicillin per protocol 4. Epidural in place 5. BPs 120s-140s/60-80s, continue to monitor 6. Anticipate vaginal delivery Sudheer Harris MD R2 Apr 30, 2017 21:42
[2017-05-01] VITALS (10 sets, daily range): BP systolic 129–152; BP diastolic 74–94; PULSE 60–98; RESP 16–22; TEMP 97.6–97.8; O2SAT 99–100
[2017-05-01] MEDS ORDERED: LACTATED RINGER'S 1000 ML INJ 1,000 ML IV ONE (00:39)
[2017-05-01] MEDS ORDERED: OXYTOCIN 10 UNIT/ML AMP ONE (00:50)
[2017-05-01] MEDS ORDERED: CLINDAMYCIN PHOS 600 MG/4 ML VIAL ONE (00:50)
[2017-05-01] MEDS ORDERED: LACTATED RINGER'S 1000 ML INJ 1,000 ML IV SCH ×2 (01:09→07:17)
[2017-05-01] MEDS ORDERED: CLINDAMYCIN INJ 600 MG in SODIUM CHLORIDE 0.9% INJ 100 ML IV SCH (01:45)
[2017-05-01] MEDS ORDERED: ONDANSETRON HCL 4 MG/2 ML VIAL ONE (01:59)
[2017-05-01] MEDS ORDERED: ACETAMINOPHEN 1000 MG/100 ML 100 ML IV ONE (01:59)
[2017-05-01] MEDS ORDERED: MORPHINE SULFATE PF 5 MG/10 ML VIAL ONE (01:59)
[2017-05-01] MEDS ORDERED: ACETAMINOPHEN 1000 MG/100 ML VIAL IV SCH (02:00)
[2017-05-01] MEDS ORDERED: CITRIC ACID-SODIUM CITRATE LIQ 30 ML UDC PO SCH (02:15)
[2017-05-01] MEDS ORDERED: oxyCODONE/ACETAMINOPHEN 5 MG/325 MG TAB PO PRN (02:30)
[2017-05-01] MEDS ORDERED: ONDANSETRON HCL 4 MG/2 ML VIAL IV PUSH PRN (02:30)
[2017-05-01] MEDS ORDERED: OXYTOCIN 30 UNITS-500ML PREMIX 500 ML IV ONE (02:30)
[2017-05-01] MEDS: SODIUM CHLORIDE 0.9% FLUSH 10 ML FLUSH IV FLUSH SCH (02:30)
[2017-05-01] MEDS ORDERED: ACETAMINOPHEN 325 MG TAB PO PRN (02:30)
[2017-05-01] MEDS ORDERED: SODIUM CHLORIDE 0.9% FLUSH 10 ML FLUSH IV FLUSH PRN (02:30)
--- NOTE | 2017-05-01 02:54 | PD.OB.DELI ---
Procedure Note Section Procedure Pre Op Diagnosis: (1) 40 weeks gestation of (2) Failure to progress in labor (3) Oligohydramnios Post Op Diagnosis: (1) 40 weeks gestation of (2) Failure to progress in labor (3) Oligohydramnios Performed by Andre Dunaway TEST CONDUCTOR: Sudheer Harris MD Procedure: Primary Low Transverse Sec Previous condition: None Informed consent obtained: For anesthesia, For procedure Confirmed correct: Procedure, Time-out taken Anesthesia: Epidural Medication prior to procedure: As documented in eMAR Monitoring during procedure: Blood pressure monitoring, cardiac monitor Urinary catheter: Inserted using sterile technique Sterile preparation: With 2% chlorexidine (Hibiclens) Position: Supine with wedge to left side Operative Features Skin Incision: Pfannenstiel Uterine Incision: Low transverse w/knife / blunt ext Membranes Ruptured: Previously Presentation: Vertex Delivery date: May 01, 2017 Delivery time: 01:27 Delivery of infant: Assisted, Uneventful : Male One Minute : 5 Five Minute : 6 Ten Minute : 9 Weight: 3250g Status of : Viable, Cord blood Placenta delivered: Intact Medications: Oxytocin Estimated blood loss: 500cc Procedure tolerated: Well Condition: Stable Procedure in detail Pt was brought to OR and placed in doral supine position on the operating table. Paient was properly identified and informed consent confirmed. Her epidural anesthesia was redosed She was cleansed and draped in standard sterile fashion. Michaels catheter had previously been inserted in bladder and this was allowed to drain to gravity throughout the case. After confirming adequacy of anesthesia, pfannensteil incision was made with scalpel and taken throght subcutaneous tissue with Bovie cautery. Rectus fascia was scored in the midline and incision extended laterally using curved Mills scissor. The rectus fascia was then elevated between 2 Kockher clamps and dissected off from the underlying rectus muscles. This was done for both superior and inferior aspects. The rectus muscles were then bluntly and the underlying peritoneum exposed. The peritonem was elevated between 2 hemostats and entered sharply with Cami scissors. The incision was extended superiorly and inferiorly with careful visualization of the bladder. The bladder blade was introduced. The vesico-uterine reflection of peritoneum was identified, tented upwards with pick-ups and entered sharly with Cami and extended bilaerally. Bladder flap was then created digitally and bladder blade was repositioned. Fresh scalpel was used to make low transverse incision over lower uterine segment and amniotomy was made with clear fluid. Infant was delivered from left occipito-transverese position, and cord was clamped and divided and passed to waiting technical service representative. Placenta and mebranes were delivered spontaneously and uterus was cleansed of all clots and debris. The uterus was then exteriorized and incision closed in 3 layers. First of 0 Vicryl in continous locking fashion and the second of the same , that was used to imbricate the first. After confirming hemostasis at the angles, the vesico-uterine reflection was re- approximated using 2.0 Viryl. Gutters were cleansed of all clots and debris and uterus was returned to its intraperitoneal location. Interceed adhesion barrier was placed over the uterine incision and over the body of the uterus. Parietal peritoneum was closed with 2.0 Vicryl and same suture was used to re- approximate the edges of the rectus muscles in the midline. Fascia was closed with 1 PDS in continous fashion, after which the subcutaneous layer space was closed with 2 .0 Vicryl Skin was closed with 3.0 Monocryl is subcuticular fashion. Patient tolerated procedure well and was transferred stable to recovery. Andre Dunaway MD May 01, 2017 02:54
[2017-05-01] MEDS ORDERED: ePHEDrine/NS 50 MG/5 ML SYR IV ONE (02:58)
[2017-05-01] MEDS ORDERED: LACTATED RINGER'S 1,000 ML BAG IV ONE (02:58)
[2017-05-01] MEDS ORDERED: LIDOCAINE 2%/EPINEPHrine 1:100,000 20ML MDV OTHER ONE (02:58)
[2017-05-01] MEDS ORDERED: MORPHINE SULFATE PF 10 MG/10 ML VIAL ONE (02:58)
[2017-05-01] MEDS ORDERED: SODIUM BICARB 8.4% (PED) INJ 10 MEQ/10 ML SYR IV PUSH ONE (02:58)
[2017-05-01] MEDS ORDERED: OXYTOCIN 30 UNITS-500ML PREMIX 0 ML ONE (03:43)
[2017-05-01] MEDS ORDERED: EPIDURAL-DO NOT ADMINISTER ANTICOAGULANTS PRN (04:30)
[2017-05-01] MEDS ORDERED: EPIDURAL-NO SYSTEMIC NARCOTICS PRN (04:30)
[2017-05-01] MEDS ORDERED: EPIDURAL-DIPHENHYDRAMINE HCL 50 MG CAP PO PRN (04:30)
[2017-05-01] MEDS ORDERED: EPIDURAL-NALOXONE HCL 0.4 MG/ML AMP IV PRN (04:30)
[2017-05-01] MEDS: EPIDURAL-DIPHENHYDRAMINE HCL 50 MG/ML VIAL IV PUSH PRN ×2 (04:44→11:30)
--- NOTE | 2017-05-01 08:05 | HHI.OB ---
Subjective Post Operative Day: 0 Remarks Patient seen and examined this morning. AFVSS overnight. She is postoperative day #0. She denies feeling any pain currently. Epidural and anesthesia are still wearing off. She has not yet ambulated but she states she is regaining some of the feeling in her lower extremities. She denies any bleeding or drainage from the incision site onto her bandage. She had planned to breastfeed however she states she thinks may cause her to have more pelvic discomfort and is thus formula feeding. She denies breast tenderness. She is looking forward to eating breakfast. Denies flatus or any BMs yet. Denies specifically denies fevers, chills, CP, SOB, calf pain. (Sudheer Harris MD R2) Objective Vitals/I&O Vital Signs Date Time Temp Pulse Resp B/P (MAP) Pulse Ox O2 Delivery O2 Flow Rate FiO2 05/01/17 04:00 97.8 73 16 131/77 (95) 05/01/17 03:30 97.8 05/01/17 03:15 65 16 152/81 (104) 99 05/01/17 03:00 17 100 05/01/17 03:00 65 140/88 (105) 05/01/17 02:45 62 16 129/80 (96) 100 05/01/17 02:30 72 18 140/74 (96) 100 05/01/17 02:15 100 05/01/17 02:15 74 22 136/74 (94) 05/01/17 02:15 97.7 05/01/17 00:32 98 140/94 (109) 05/01/17 00:32 98 140/94 (109) 05/01/17 00:15 80 05/01/17 00:15 80 04/30/17 23:50 95 126/65 (85) 04/30/17 23:50 95 126/65 (85) 04/30/17 23:46 102 99/79 (86) 04/30/17 23:46 102 99/79 (86) 04/30/17 23:31 80 153/70 (97) 04/30/17 23:16 78 147/76 (99) 04/30/17 23:01 78 127/64 (85) 04/30/17 22:46 83 142/71 (94) 04/30/17 22:32 79 135/81 (99) 04/30/17 22:20 75 154/76 (102) 04/30/17 22:01 71 150/85 (106) 04/30/17 21:46 70 145/79 (101) 04/30/17 21:32 98.5 04/30/17 21:31 73 18 135/74 (94) 04/30/17 21:16 73 149/87 (107) 04/30/17 21:05 16 04/30/17 21:01 77 142/74 (96) 04/30/17 21:00 142/74 (96) 04/30/17 20:51 79 18 04/30/17 20:31 72 144/65 (91) 04/30/17 20:16 72 147/85 (105) 04/30/17 20:07 73 145/89 (107) 04/30/17 19:46 79 149/79 (102) 04/30/17 19:31 78 154/75 (101) 04/30/17 19:16 77 146/74 (98) 04/30/17 19:15 97.7 04/30/17 19:15 16 04/30/17 19:01 80 136/81 (99) 04/30/17 18:56 18 04/30/17 18:46 78 126/69 (88) 04/30/17 18:32 82 126/54 (78) 04/30/17 18:30 18 04/30/17 18:16 79 145/77 (99) 04/30/17 18:01 91 140/86 (104) 04/30/17 18:00 18 04/30/17 18:00 98.1 04/30/17 17:46 75 152/86 (108) 04/30/17 17:41 18 04/30/17 17:31 81 151/87 (108) 04/30/17 17:16 78 151/89 (109) 04/30/17 17:10 18 04/30/17 17:01 76 146/86 (106) 04/30/17 16:46 72 150/77 (101) 04/30/17 16:45 18 04/30/17 16:31 71 149/82 (104) 04/30/17 16:16 69 135/87 (103) 04/30/17 16:13 18 04/30/17 16:01 88 111/61 (78) 04/30/17 15:46 70 136/66 (89) 04/30/17 15:45 97.8 04/30/17 15:38 18 04/30/17 15:31 72 130/63 (85) 04/30/17 15:16 71 137/77 (97) 04/30/17 15:14 18 04/30/17 15:01 72 138/74 (95) 04/30/17 14:46 68 135/77 (96) 04/30/17 14:45 18 04/30/17 14:32 70 119/59 (79) 04/30/17 14:16 81 138/86 (103) 04/30/17 14:11 102 136/83 (100) 04/30/17 14:06 77 128/61 (83) 04/30/17 14:01 78 153/78 (103) 04/30/17 14:00 98.0 04/30/17 14:00 18 04/30/17 13:56 85 142/87 (105) 04/30/17 13:51 75 143/80 (101) 04/30/17 13:46 74 152/76 (101) 04/30/17 13:41 74 158/118 (131) 04/30/17 10:42 75 144/86 (105) 04/30/17 08:37 98.6 04/30/17 08:15 18 04/30/17 08:10 79 138/73 (94) (Sudheer Harris MD R2) Result Diagram: 04/29/17 1525 Objective Remarks GENERAL: Well-nourished, well-developed patient. NAD. Lying comfortably in bed. CARDIOVASCULAR: Regular rate and rhythm without murmurs, gallops, or rubs. RESPIRATORY: Breath sounds equal bilaterally. No accessory muscle use. ABDOMEN/GI: Abdomen soft, non-tender, bowel sounds present. Incision: Covered by bandage. Bandage appearing clean and dry. Fundus: Firm, non-tender at umbilicus. GENITOURINARY: Light to moderate bleeding. EXTREMITIES: No cyanosis or edema, non-tender, without signs of DVT. Medications and IVs Current Medications Medications (Trade) Dose Ordered Sig/Vane Route Start Time Stop Time Status Last Admin Sodium Chloride 500 ml @ 1,000 mls/hr ONCE PRN IV 04/29/17 16:00 05/01/17 15:59 (Xylocaine 1% Inj (50 ml)) 0.1 ml UNSCH X1 PRN I-DERMAL 04/29/17 16:00 05/02/17 15:59 (Xylocaine 1% Inj (50 ml)) 10 ml UNSCH X1 PRN INFIL 04/29/17 16:00 05/01/17 15:59 (Muri-Lube Oil) 10 ml UNSCH PRN TOPICAL 04/29/17 16:00 (Vistaril) 75 mg HS PRN PO 04/29/17 21:00 04/29/17 23:43 Lactated Ringer's 1,000 ml @ 100 mls/hr Q10H IV 05/01/17 07:17 05/02/17 03:16 Oxytocin 500 ml @ 100 mls/hr UNSCH X1 PRN IV 05/01/17 12:30 05/02/17 12:29 (NS Flush) 2 ml BID IV FLUSH 05/01/17 02:30 (NS Flush) 2 ml UNSCH PRN IV FLUSH 05/01/17 02:30 (Tylenol) 650 mg Q6H PRN PO 05/01/17 02:30 (Percocet 5-325 Mg) 1 tab Q4H PRN PO 05/01/17 02:30 (Percocet 5-325 Mg) 2 tab Q4H PRN PO 05/01/17 02:30 (Tanya-Colace) 2 tab Q12H PRN PO 05/01/17 02:30 (M-M-R Ii Inj) 0.5 ml ONCE ONCE SQ 05/02/17 16:00 05/02/17 16:01 (Boostrix Inj) 0.5 ml ONCE ONCE IM 05/02/17 16:00 05/02/17 16:01 (Zofran Inj) 4 mg Q6H PRN IV PUSH 05/01/17 02:30 (Ofirmev 1000 Mg/ 100 ml Inj) 1,000 mg Q8H IV 05/01/17 02:00 05/01/17 18:01 Miscellaneous Information NO SYSTEMIC NARCOTICS TO BE GIVEN FO... UNSCH PRN .XX 05/01/17 04:30 05/02/17 04:29 (Narcan Inj) 0.4 mg UNSCH PRN IV 05/01/17 04:30 05/02/17 04:29 (Benadryl Inj) 25 mg Q6H PRN IV PUSH 05/01/17 04:30 05/02/17 04:29 05/01/17 04:44 (Benadryl) 50 mg Q6H PRN PO 05/01/17 04:30 05/02/17 04:29 Miscellaneous Information ALL NURSING DEPARTMENTS UNSCH PRN .XX 05/01/17 04:30 05/02/17 04:29 (Sudheer Harris MD R2) Assessment/Plan Problem List: (1) care following delivery ICD Codes: Z39.2 - Encounter for routine follow-up Assessment and Plan Miroslava Huang is a very pleasant 26-year-old now POD#0 s/p due to failure to progress. 1. Postoperative Care - AFVSS - Incision covered by bandage, appearing clean and dry. Will re-examine after bandage removed - PreOp Hgb 11.4, will follow postOp Hgb this AM - Percocet and Motrin prn pain - Encouraged OOB, as tolerated once anesthesia wears off - Advised pelvic rest x 6 weeks - Currently formula-feeding. Encouraged her to consider again - Contraception: Desires Mirena IUD. Advised her she may come to Gynecology clinic at [address] [place] [address] F/ in 1 week as outpatient with myself for incision check (Sudheer Harris MD R2) Attending Attestation Patient seen, examined, and discussed with Dr Harris. I agree with assessment and management as documented and discussed with me. (Jessica Garcia MD) Sudheer Harris MD R2 May 01, 2017 08:05 Jessica Garcia MD May 01, 2017 14:42
[2017-05-01 11:49] LABS: AUTOMATED NEUTROPHIL # 15.7 TH/MM3 (1.8-7.7); BASOPHIL % 0.1 % (0.0-2.0); HEMATOCRIT 35.3 % (35.0-46.0); HEMO FLAGS DIFF FINAL; LYMPH % 7.9 % (9.0-44.0); LYMPHOCYTE # 1.4 TH/MM3 (1.0-4.8); MEAN CELL VOLUME 78.8 FL (80.0-100.0); MEAN CORPUSCULAR HEMOGLOBIN 24.3 PG (27.0-34.0); MEAN CORPUSCULAR HGB CONC 30.9 % (32.0-36.0); MONO % 4.7 % (0.0-8.0); NEUT % 87.3 % (16.0-70.0); PLATELET COUNT 225 TH/MM3 (150-450); RED BLOOD COUNT 4.48 MIL/MM3 (4.00-5.30); RED CELL DISTRIBUTION WIDTH 16.3 % (11.6-17.2)
[2017-05-01] MEDS ORDERED: OXYTOCIN 30 UNITS-500ML PREMIX 500 ML IV PRN (12:30)
[2017-05-01] MEDS: oxyCODONE/ACETAMINOPHEN 5 MG/325 MG TAB PO PRN (13:30)
[2017-05-01] MEDS: DOCUSATE SODIUM 50 MG/SENNA 8.6 MG TAB PO PRN (13:30)
[2017-05-01] MEDS: IBUPROFEN 600 MG TAB PO PRN (13:30)
[2017-05-02] MEDS: IBUPROFEN 600 MG TAB PO PRN ×4 (02:11→22:24)
[2017-05-02] MEDS: oxyCODONE/ACETAMINOPHEN 5 MG/325 MG TAB PO PRN ×4 (02:11→22:23)
[2017-05-02 06:14] LABS: BASOPHIL # 0.1 TH/MM3 (0-0.2); BASOPHIL % 0.4 % (0.0-2.0); EOSINOPHIL % 0.2 % (0.0-4.0); HEMO FLAGS DIFF FINAL; LYMPH % 9.9 % (9.0-44.0); LYMPHOCYTE # 1.5 TH/MM3 (1.0-4.8); MEAN CELL VOLUME 79.4 FL (80.0-100.0); MEAN CORPUSCULAR HGB CONC 31.5 % (32.0-36.0); NEUT % 84.5 % (16.0-70.0); PLATELET COUNT 216 TH/MM3 (150-450); RED BLOOD COUNT 4.16 MIL/MM3 (4.00-5.30); RED CELL DISTRIBUTION WIDTH 16.4 % (11.6-17.2); WHITE BLOOD COUNT 15.4 TH/MM3 (4.0-11.0)
--- NOTE | 2017-05-02 08:12 | HHI.OB ---
Subjective Remarks Postoperative day # 1 AFVSS overnight. Incision not draining. Decreased lochia. Denies dysuria. No breast tenderness. She is feeding the baby via breast. Appetite good. No nausea or vomiting. Positive flatus. Ambulating well. Denies calf pain or shortness of breath. Otherwise, she is doing well this morning and has no other complaints. (Sofy Plata MD, R3) Remarks Patient seen and evaluated with resident under direct supervision, agree with assessment and plan. (Alexis Peralta MD) Objective Vitals/I&O Vital Signs Date Time Temp Pulse Resp B/P (MAP) Pulse Ox O2 Delivery O2 Flow Rate FiO2 05/01/17 09:00 97.6 60 16 137/89 (105) Objective Remarks GENERAL: Well-nourished, well-developed patient. CARDIOVASCULAR: Regular rate and rhythm without murmurs, gallops, or rubs. RESPIRATORY: Breath sounds equal bilaterally. No accessory muscle use. ABDOMEN/GI: Abdomen soft, non-tender. Fundus: Firm, non-tender at umbilicus. GENITOURINARY: Light to moderate bleeding. EXTREMITIES: No cyanosis or edema, non-tender, without signs of DVT. Medications and IVs Current Medications Medications (Trade) Dose Ordered Sig/Vane Route Start Time Stop Time Status Last Admin (Xylocaine 1% Inj (50 ml)) 0.1 ml UNSCH X1 PRN I-DERMAL 04/29/17 16:00 05/02/17 15:59 (Muri-Lube Oil) 10 ml UNSCH PRN TOPICAL 04/29/17 16:00 (Vistaril) 75 mg HS PRN PO 04/29/17 21:00 04/29/17 23:43 Oxytocin 500 ml @ 100 mls/hr UNSCH X1 PRN IV 05/01/17 12:30 05/02/17 12:29 (NS Flush) 2 ml BID IV FLUSH 05/01/17 02:30 (NS Flush) 2 ml UNSCH PRN IV FLUSH 05/01/17 02:30 (Tylenol) 650 mg Q6H PRN PO 05/01/17 02:30 (Percocet 5-325 Mg) 1 tab Q4H PRN PO 05/01/17 02:30 05/02/17 02:11 (Tanya-Colace) 2 tab Q12H PRN PO 05/01/17 02:30 05/01/17 13:30 (M-M-R Ii Inj) 0.5 ml ONCE ONCE SQ 05/02/17 16:00 05/02/17 16:01 (Boostrix Inj) 0.5 ml ONCE ONCE IM 05/02/17 16:00 05/02/17 16:01 05/01/17 22:25 (Zofran Inj) 4 mg Q6H PRN IV PUSH 05/01/17 02:30 (Motrin) 600 mg Q6H PRN PO 05/01/17 13:00 05/02/17 02:11 (Sofy Plata MD, R3) Assessment/Plan Problem List: (1) care following delivery ICD Codes: Z39.2 - Encounter for routine follow-up Assessment and Plan 26 y/o female who is POD# 1 s/p for failure to progress. -Continue routine care. - Hgb stable at 10.4. -Percocet and Motrin PRN pain. -Encouraged OOB. Advised pelvic rest for 6 wks. Will need a f/u appt. in 1 wk for incision check with Dr. Harris. -Re: ctrl, she would like Mirena. -D/c in 1-[address] Peralta (Sofy Plata MD, R3) Sofy Plata MD, R3 May 02, 2017 08:12 Alexis Peralta MD May 03, 2017 17:02
[2017-05-02] MEDS: SODIUM CHLORIDE 0.9% FLUSH 10 ML FLUSH IV FLUSH SCH (09:00)
[2017-05-02] MEDS: DOCUSATE SODIUM 50 MG/SENNA 8.6 MG TAB PO PRN (09:04)
[2017-05-02] MEDS ORDERED: DIPHTH/TETANUS/ACEL PERTUSSIS (BOOSTER) 0.5 ML VIAL/PFS IM ONE (16:00)
[2017-05-02] MEDS ORDERED: MEASLES, MUMPS, RUBELLA VACCINE 0.5 ML VIAL SQ ONE (16:00)
[2017-05-02 23:24] VITALS: RESP 18
[2017-05-03] MEDS: IBUPROFEN 600 MG TAB PO PRN (04:43)
[2017-05-03] MEDS: oxyCODONE/ACETAMINOPHEN 5 MG/325 MG TAB PO PRN (04:43)
--- NOTE | 2017-05-03 08:27 | HHI.OB ---
Subjective Post Operative Day: 2 Remarks Postoperative day #2. Remains afebrile, vitals stable. Incision not draining. Decreased lochia. Denies dysuria. Denies breast tenderness. She has been formula feeding. She reports her appetite is good without N/V. Positive flatus and endorses a BM. Ambulating well without issues. Denies calf pain or shortness of breath. She reports her pain is well controlled She is otherwise doing well this morning and has no other complaints. She plans to have her baby boy circumcised at the [place] [id number] building. (Sudheer Harris MD R2) Objective Vitals/I&O Vital Signs Date Time Temp Pulse Resp B/P (MAP) Pulse Ox O2 Delivery O2 Flow Rate FiO2 05/02/17 23:24 18 05/02/17 23:24 18 (Sudheer Harris MD R2) Result Diagram: 05/02/17 0604 Objective Remarks GENERAL: Well-nourished, well-developed patient. NAD. Lying comfortably in bed. CARDIOVASCULAR: Regular rate and rhythm without murmurs, gallops, or rubs. RESPIRATORY: Breath sounds equal bilaterally. No accessory muscle use. ABDOMEN/GI: Abdomen soft, non-tender, bowel sounds present. Incision: Incision is c/d/i Fundus: Firm, non-tender at umbilicus. GENITOURINARY: Light to moderate bleeding. EXTREMITIES: No cyanosis or edema, non-tender, without signs of DVT. Medications and IVs Current Medications Medications (Trade) Dose Ordered Sig/Vane Route Start Time Stop Time Status Last Admin (Muri-Lube Oil) 10 ml UNSCH PRN TOPICAL 04/29/17 16:00 (Vistaril) 75 mg HS PRN PO 04/29/17 21:00 04/29/17 23:43 (NS Flush) 2 ml BID IV FLUSH 05/01/17 02:30 (NS Flush) 2 ml UNSCH PRN IV FLUSH 05/01/17 02:30 (Tylenol) 650 mg Q6H PRN PO 05/01/17 02:30 (Percocet 5-325 Mg) 1 tab Q4H PRN PO 05/01/17 02:30 05/03/17 04:43 (Tanya-Colace) 2 tab Q12H PRN PO 05/01/17 02:30 05/02/17 09:04 (Zofran Inj) 4 mg Q6H PRN IV PUSH 05/01/17 02:30 (Motrin) 600 mg Q6H PRN PO 05/01/17 13:00 05/03/17 04:43 (Sudheer Harris MD R2) Assessment/Plan Problem List: (1) care following delivery ICD Codes: Z39.2 - Encounter for routine follow-up Assessment and Plan Very pleasant 26 year old female who is POD#2 s/p for failure to progress. -Continue routine care. -Hgb stable at 10.4. -Percocet and Motrin PRN pain. -Encouraged OOB. Advised pelvic rest for 6 wks. Advised patient to schedule a follow up appointment with myself in one week for incision check -Re: ctrl, she would like Mirena. Plans to call [address] to have [address] placed -Anticipate discharge today wdw Dr. Dickson (Sudheer Harris MD R2) Attending Attestation POD #2 s/p Doing well. d/c home today. PP precautions reviewed f/u with Dr. Harris (Cata Dickson MD) Sudheer Harris MD R2 May 03, 2017 08:27 Cata Dickson MD May 03, 2017 08:48
[2017-05-03] MEDS ORDERED: OXYC1TAB63 PO (08:39)
[2017-05-03] MEDS: SODIUM CHLORIDE 0.9% FLUSH 10 ML FLUSH IV FLUSH SCH (09:00)
[2017-05-03] MEDS ORDERED: IBUP-232 PO (09:42)
[2017-05-03] MEDS ORDERED: SENN1TAB PO (09:42)
--- NOTE | 2017-05-03 09:43 | HHI.DCPOC ---
Discharge Care Plan Diagnosis: (1) care following delivery (2) Failure to progress in labor (3) Oligohydramnios (4) 40 weeks gestation of Goals to Promote Your Health * To prevent worsening of your condition and complications, follow up with your primary care provider within one week after hospital discharge for an incision check. Directions to Meet Your Goals Take your medications as prescribed Follow your dietary instruction Follow activity as directed Keep your appointments as scheduled Take your immunizations and boosters as scheduled If your symptoms worsen call your PCP, if no PCP go to Urgent Care Center or Emergency Room Smoking is Dangerous to Your Health. Avoid second hand smoke Call the 24-hour hour crisis hotline for domestic abuse at Sudheer Harris MD R2 May 03, 2017 09:43
[2017-06-19] MEDS ORDERED: SENN1TAB PO (13:53)
[2017-06-19] MEDS ORDERED: MIRA3350 PO (13:53)
== END 2017-05-03 11:20 | disposition home or self-care (01) | DRG 766 ==
LOC: HPND 14:35 → H2EA 15:07 → H1EA 05-01 03:49
PROVIDERS: ADMIT Obstetrics & Gynecology; ATTEND Obstetrics & Gynecology
PROC: 3E0P7GC Introduction of Other Therapeutic Substance into Female Reproductive, Via Natural or Artificial Opening (ICD-10-PCS; 2017-04-29)
PROC: 00HU33Z Insertion of Infusion Device into Spinal Canal, Percutaneous Approach (ICD-10-PCS; 2017-04-30)
PROC: 3E0R3CZ (ICD-10-PCS; 2017-04-30)
PROC: 10D00Z1 Extraction of Products of Conception, Low, Open Approach (ICD-10-PCS; principal; 2017-05-01)
DX: O41.03X0 Oligohydramnios, third trimester, not applicable or unspecified (principal); O99.824 Streptococcus B carrier state complicating childbirth; O62.2 Other uterine inertia; Z37.0 Single live birth; Z3A.40 40 weeks gestation of pregnancy
CPT/HCPCS: 59025; 76815; 76816; 76818; 81001; 85025; 86900; 86901; 87086; 90715; C1765; J0131; J1200; J2274; J2405; J2540; J2590; J3010; J7030; J7120; Q0177

== ENCOUNTER 2017-08-02 10:28 | Emergency (ER) | payer OTHER ==
[~2017-08-02] VITALS: Ht 172.7 cm; Wt 139.9 kg
[~2017-08-02 10:28] MED LIST changes: -FERR324T4 PO; +MIRA3350 PO; -PREN29TA PO; +SENN1TAB PO
[2017-08-02 10:33] VITALS: BP 137/86; PULSE 67; RESP 18; TEMP 97.6; O2SAT 99
--- NOTE | 2017-08-02 11:47 | PD ---
HPI Chief Complaint: Musculoskeletal Complaint Time Seen by Provider: 11:20 Travel History International Travel<30 days: No Contact w/Intl Traveler<30days: No Traveled to known affect area: No History of Present Illness HPI 26-year-old female with history of sciatica presents to the emergency room for evaluation of left hip pain radiating down the left lower extremity for the past 2 weeks. Patient has not taken anything for her symptoms. Denies back pain, saddle anesthesia, loss of bowel or bladder control, or lower extremity paresthesias. Pain is worsened when she moves and relieved at rest. 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 No other chronic medical conditions or daily medications. History Past Medical Histgory Medical History: Denies Significant Hx Tetanus Vaccination: Unknown LMP: 07/23/17 Social History Alcohol Use: No Tobacco Use: No Allergies-Medications (Allergen,Severity, Reaction): Coded Allergies: cephalexin (Unverified Adverse Reaction, Intermediate, Rash, 08/02/17) Reported Meds & Prescriptions Reported Meds & Active Scripts Active No Active Prescriptions or Reported Medications Review of Systems Except as stated in HPI: all other systems reviewed are Neg Physical Exam Narrative GENERAL: Well-nourished, morbidly obese female in no acute distress. Afebrile. Ambulatory.. SKIN: Focused skin assessment warm/dry. HEAD: Normocephalic. EYES: No scleral icterus. No injection or drainage. NECK: Supple, trachea midline. No JVD or lymphadenopathy. CARDIOVASCULAR: Regular rate and rhythm without murmurs, gallops, or rubs. RESPIRATORY: Breath sounds equal bilaterally. No accessory muscle use. BACK: No CVA tenderness. No rash. No point tenderness on palpation of the spine. Strength 5/5 and equal in lower extremities. Positive straight leg raise. Data Data Last Documented VS Vital Signs Date Time Temp Pulse Resp B/P (MAP) Pulse Ox O2 Delivery O2 Flow Rate FiO2 08/02/17 10:41 16 08/02/17 10:33 97.6 67 137/86 (103) 99 MDM Medical Screen Exam Complete: Yes Emergency Medical Condition: No Differential Diagnosis Muscle spasm, strain, bursitis Narrative Course 26-year-old female history of sciatica presents to the emergency room for evaluation of left lateral hip pain radiating down the left lower extremity for the past 2 weeks. Denies specific trauma or injury. She has not taken anything for symptoms. No back pain or focal neurological deficits. She is ambulatory. This is trochanteric bursitis or sciatica flare. Patient told to take high-dose ibuprofen and follow up with her primary care physician or return for worsening symptoms. A medical screening exam was performed: At the time of evaluation the presenting medical condition was determined not to be of an emergent nature. The patient was given the option of receiving additional care and decided to stay. Primary Impression: Bursitis of left hip Qualified Codes: M70.62 - Trochanteric bursitis, left hip Referrals: Primary Care Physician Departure Forms: Tests/Procedures, Work Release Enter return to work date: Aug 03, 2017 Additional Instructions: Rest and drink plenty of fluids. Take ibuprofen with food as directed, as needed for pain. Apply ice to the affected area for 20 minutes at a time, as needed for pain and swelling. Follow-up with a primary care physician. Return to the emergency room for worsening symptoms. Scripts No Active Prescriptions or Reported Meds Disposition: 01 DISCHARGE HOME Condition: Stable Araceli Brink Aug 02, 2017 11:47
[2017-08-02] MEDS ORDERED: IBUP1TAB7 PO (11:48)
== END 2017-08-02 11:55 | disposition home or self-care (01) ==
LOC: PHEFT 10:28
DX: M70.62 Trochanteric bursitis, left hip (principal)
CPT/HCPCS: 99282